=== PATIENT | male | born 1935 | race Caucasian/White ===

== ENCOUNTER 2016-12-29 14:11 | Inpatient (IN) | payer OTHER, MEDICARE ==
[~2016-12-29] VITALS: Ht 172.7 cm; Wt 87.9 kg
[2016-12-29] MEDS ORDERED: AMLODIPINE BES2.5 MG PO (15:32)
[2016-12-29] MEDS ORDERED: ASPIR 8181 M1 PO (15:32)
[2016-12-29] MEDS ORDERED: ALFUZOSIN HCL10 MG PO (15:33)
[2016-12-29] MEDS ORDERED: ATORVASTATIN CA40 MG PO (15:33)
[2016-12-29] MEDS ORDERED: VALSARTAN160 MG PO (15:34)
[2016-12-29] MEDS ORDERED: LORAZEPAM1 MG PO (15:34)
[2016-12-29] MEDS ORDERED: TRIAMTERENE-HC1 EACH PO (15:34)
[2016-12-29] MEDS ORDERED: PRESERVISION A1 EAC2 PO (15:35)
[2016-12-29] MEDS ORDERED: Elderberry PO (15:35)
[2016-12-29 15:40] LABS: BASOPHIL COUNT 0.1 K/uL (0-0.1); EOSINOPHIL (%) 0.6 % (0-5); EOSINOPHIL COUNT 0.1 K/uL (0-0.3); HEMATOCRIT 42.3 % (38.0-50.0); IMMATURE GRANULOCYTE (%) 0.4 % (0.0-0.7); IMMATURE GRANULOCYTE COUNT 0.1 K/uL; INSTRUMENT ABS NEUTROPHIL CT 11.3 K/uL; LYMPHOCYTE COUNT 4.9 K/uL (1.0-2.8); MCH 30.5 PG (29.0-34.0); MCHC 34.5 G/DL (30.0-36.0); MCV 88.3 FL (86-99); MONOCYTE (%) 2.8 % (3-12); MONOCYTE COUNT 0.5 K/uL (0-0.8); NEUTROPHIL (%) 66.9 % (45-76); NEUTROPHIL COUNT 11.3 K/uL (1.8-6.4); PLATELET COUNT 99 K/uL (156-360); RED BLOOD COUNT 4.79 M/uL (4.00-5.50); WHITE BLOOD COUNT 16.9 K/uL (4.1-10.2)
[2016-12-29 15:48] LABS: CHLORIDE 102 mEq/L (99-109); POTASSIUM 3.7 mEq/L (3.7-5.4); SODIUM 140 mEq/L (136-147)
[2016-12-29 15:50] LABS: GLUCOSE 110 mg/dL (70-99)
[2016-12-29 15:52] LABS: ANION GAP 11 MEQ/L (2-14)
[2016-12-29 15:54] LABS: GFR ESTIMATE (CALCULATED) 39 mL/min/
[2016-12-29 15:55] LABS: UREA NITROGEN (BUN) 22 mg/dL (9-23)
[2016-12-29 16:00] LABS: TROP-I INTERPRETATION NEGATIVE; TROPONIN-I 0.21 ng/mL (0.0-0.30)
[2016-12-29] MEDS ORDERED: CO Q-10100 MG PO (16:46)
[2016-12-29] MEDS ORDERED: VITAMIN D31000 UNIT PO (16:47)
[2016-12-29 17:48] LABS: ADD MIUA? NO; BILIRUBIN NEGATIVE; BLOOD NEGATIVE; COLOR YELLOW ((YELLOW)); GLUCOSE (STRIP) NEGATIVE; KETONES 5; LEUKOCYTES NEGATIVE; NITRITE NEGATIVE; PROTEIN (STRIP) 30; SPECIFIC GRAVITY 1.011 (1.000-1.030); UROBILINOGEN 0.2 MG/DL (0.2-1.0)
[2016-12-29 17:50] VITALS: BP 115/61
[2016-12-29 17:54] VITALS: BP 111/56
[2016-12-29 18:00] VITALS: BP 110/59
[2016-12-29 20:54] VITALS: BP 98/56
[2016-12-29 22:31] LABS: TROP-I INTERPRETATION POSITIVE; TROPONIN-I 0.62 ng/mL (0.0-0.30)
[2016-12-30 00:24] VITALS: BP 99/61
[2016-12-30 01:15] LABS: INTER. NORMALIZED RATIO 1.2; PROTHROMBIN TIME 12.2 (9.2-11.2); PTT 29.4 (25-32)
[2016-12-30 03:32] VITALS: BP 108/57
[2016-12-30 04:37] LABS: HEMATOCRIT 37.4 % (38.0-50.0); MCH 31.3 PG (29.0-34.0); MCHC 34.8 G/DL (30.0-36.0); MCV 90.1 FL (86-99); MEAN PLAT.VOLUME 10.4 uM^3 (9.0-12.4); PLATELET COUNT 86 K/uL (156-360); RBC DIS.WIDTH-CV 12.3 % (11.8-14.6); RBC DIS.WIDTH-SD 40.3 % (39-53); RED BLOOD COUNT 4.15 M/uL (4.00-5.50); WHITE BLOOD COUNT 11.6 K/uL (4.1-10.2)
[2016-12-30 04:56] LABS: CHLORIDE 104 mEq/L (99-109); POTASSIUM 3.6 mEq/L (3.7-5.4); SODIUM 139 mEq/L (136-147)
[2016-12-30 04:57] LABS: GLUCOSE 157 mg/dL (70-99)
[2016-12-30 04:59] LABS: ANION GAP 9 MEQ/L (2-14)
[2016-12-30 05:01] LABS: GFR ESTIMATE (CALCULATED) 48 mL/min/
[2016-12-30 05:02] LABS: UREA NITROGEN (BUN) 23 mg/dL (9-23)
[2016-12-30 05:10] LABS: TROP-I INTERPRETATION INDETERMINATE; TROPONIN-I 0.59 ng/mL (0.0-0.30)
[2016-12-30 08:02] VITALS: BP 124/60
[2016-12-30 11:40] VITALS: BP 109/77
[2016-12-30] MEDS ORDERED: VALSARTAN80 MG PO (16:55)
== END 2016-12-30 16:44 | disposition home or self-care (01) | DRG 684 ==
LOC: EDBD 14:11 → EME 14:11 → EDOF 16:26 → 5WEST 17:46
PROVIDERS: Emergency Medicine; Internal Medicine; Physician Assistant Medical
DX: N17.9 Acute kidney failure, unspecified (principal); I35.0 Nonrheumatic aortic (valve) stenosis; R55 Syncope and collapse; I95.9 Hypotension, unspecified; E86.0 Dehydration; Z95.1 Presence of aortocoronary bypass graft; I25.2 Old myocardial infarction; F17.200 Nicotine dependence, unspecified, uncomplicated; I12.9 Hypertensive chronic kidney disease with stage 1 through stage 4 chronic kidney disease, or unspecified chronic kidney disease; N40.1 Benign prostatic hyperplasia with lower urinary tract symptoms; N18.3 Chronic kidney disease, stage 3 (moderate); R33.8 Other retention of urine; D69.6 Thrombocytopenia, unspecified; I25.10 Atherosclerotic heart disease of native coronary artery without angina pectoris; R32 Unspecified urinary incontinence; Z95.3 Presence of xenogenic heart valve; R74.8 Abnormal levels of other serum enzymes; E78.5 Hyperlipidemia, unspecified; Z87.440 Personal history of urinary (tract) infections
CPT/HCPCS: 70450; 71010; 76770; 80048; 81003; 84484; 85025; 85027; 85610; 85730; 93005; 93880; 99202; 99281; 99285; G0103; J1644; J2405; J3480; J7030